=== PATIENT | male | born 1960 | race Caucasian/White ===

== ENCOUNTER → 2016-12-14 | Outpatient (CLI) | payer BC ==
--- NOTE | 2016-12-14 11:10 | DIAGNOSTIC IMAGING REPORT ---
ULTRASOUND LEFT VENOUS DOPP LOWER EXT UNILAT CLINICAL HISTORY: Left leg swelling COMPARISON STUDY: No previous studies for comparison. FINDINGS: Real-time and color flow Doppler imaging were performed. Flow was seen within the femoral, popliteal and calf veins with no intraluminal thrombus demonstrated. There is a left saphenous vein thrombus within the calf. IMPRESSION: 1. No evidence of left lower extremity DVT 2. Left saphenous vein calf thrombus Electronically signed by: Yousuf Melvin M.D. 12/14/2016 11:09 AM Dictated Date/Time: 12/14/2016 11:08 AM
== END | disposition home or self-care (01) ==
LOC: C.ULTR 10:32
PROVIDERS: ATTEND Family Medicine
DX: I80.9 Phlebitis and thrombophlebitis of unspecified site (principal); I82.812 Embolism and thrombosis of superficial veins of left lower extremity